=== PATIENT | female | born 1995 | race African-American/Black ===

== ENCOUNTER → 2016-11-10 | Outpatient (CLI) | payer OTHER, MEDICAID ==
[~2016-11-10] MED LIST: DICY1TAB26 PO; OMEP20TA39 PO
== END ==
LOC: HPND 09:43
PROVIDERS: ATTEND Obstetrics & Gynecology
DX: O30.002 Twin pregnancy, unspecified number of placenta and unspecified number of amniotic sacs, second trimester (principal); O09.32 Supervision of pregnancy with insufficient antenatal care, second trimester; O99.342 Other mental disorders complicating pregnancy, second trimester; Z3A.23 23 weeks gestation of pregnancy
CPT/HCPCS: 76811; 76812; 76825; 76827; 93325

== ENCOUNTER → 2016-12-08 | Outpatient (CLI) | payer OTHER | LOC: HPND 12:56 | PROVIDERS: ATTEND Obstetrics & Gynecology | DX: O35.8XX1 Maternal care for other (suspected) fetal abnormality and damage, fetus 1 (principal); O30.042 Twin pregnancy, dichorionic/diamniotic, second trimester; O99.342 Other mental disorders complicating pregnancy, second trimester | CPT/HCPCS: 76816; 76825; 76827; 93325 ==

== ENCOUNTER → 2017-01-11 | Outpatient (CLI) | payer OTHER | LOC: HPND 09:18 | PROVIDERS: ATTEND Obstetrics & Gynecology | DX: O35.8XX1 Maternal care for other (suspected) fetal abnormality and damage, fetus 1 (principal); O30.042 Twin pregnancy, dichorionic/diamniotic, second trimester | CPT/HCPCS: 76816 ==